=== PATIENT | female | born 1970 | race Hispanic/Latino ===

== ENCOUNTER 2017-04-09 07:06 | Emergency (ER) | payer BC, OTHER ==
[2017-04-09 07:36] LABS: #Lymphocytes 1.1 thou/uL (1.20-3.40); #Monocytes 0.3 thou/uL (0.11-0.59); #Neutrophils 5.6 thou/uL (1.40-6.50); %Basophils 0.2 % (0.0-1.0); %Eosinophils 0.2 % (0.0-10.0); %Lymphocytes 15.2 % (21.0-51.0); %Monocytes 4.9 % (0.0-10.0); Hematocrit 34.5 % (36.0-47.0); Mean Platelet Volume 8.4 fL (7.4-10.4)
--- NOTE | 2017-04-09 07:43 | RAD ---
CHEST 1 VIEW: HISTORY: Nausea and vomiting. Dyspnea. FINDINGS: Cardiac silhouette is magnified and upper limits of normal in size. Pulmonary vasculature is unrema rkable. Mediastinum is midline. There is no confluent airspace consolidation or evidence of pneumo thorax. IMPRESSION: No active cardiopulmonary abnormalities are demonstrated. POS: [facility]
[2017-04-09] MEDS ORDERED: Promethazine HCl 25 MG/ML VIAL ONE (07:45)
[2017-04-09 08:11] LABS: ALT (SGPT) 9 U/L (8-55); AST (SGOT) 12 U/L (5-34); Alkaline Phosphatase 108 U/L (40-150); Anion Gap 10 mmol/L (10-20); BUN (Urea Nitrogen) 10 mg/dL (7.0-18.7); Bilirubin, Total 0.4 mg/dL (0.2-1.2); CK (CPK) 137 U/L (29-168); Calc. Creatinine Clearance 0 mL/min (70-130); Calcium 8.9 mg/dL (7.8-10.44); Carbon Dioxide 27 mmol/L (22-29); Chloride 103 mmol/L (98-107); Estimated GFR-MDRD 86; Globulin 3.6 g/dL (2.4-3.5); Lipase 7 U/L (8-78); Protein, Total 7.5 g/dL (6.0-8.3)
[2017-04-09 08:18] LABS: Troponin I Less than 0.010 ng/mL (< 0.028)
--- NOTE | 2017-04-12 06:40 | EKG ---
Test Reason : Blood Pressure : / mmHG Vent. Rate : 059 BPM Atrial Rate : 059 BPM P-R Int : 158 ms QRS Dur : 070 ms QT Int : 406 ms P-R-T Axes : 072 -12 019 degrees QTc Int : 401 ms Sinus bradycardia Otherwise normal ECG Confirmed by BATOOL FITZGERALD, LJ ([id number]), assignment desk editor MAHESH SY ([id number]) on 04/12/2017 6:40:00 AM Referred By: Confirmed By:LJ RENAE MD
== END 2017-04-09 09:08 | disposition home or self-care (01) ==
LOC: ERS 07:06
DX: R11.2 Nausea with vomiting, unspecified (principal); R19.7 Diarrhea, unspecified; R10.84 Generalized abdominal pain
CPT/HCPCS: 36415; 71010; 80053; 82553; 83690; 84484; 85025; 93005; 96361; 96374; J2550

== ENCOUNTER 2017-04-10 19:02 | Emergency (ER) | payer OTHER ==
[2017-04-10 20:19] LABS: #Basophils 0.1 thou/uL (0.0-0.2); #Lymphocytes 1.7 thou/uL (1.20-3.40); #Monocytes 0.6 thou/uL (0.11-0.59); #Neutrophils 6.6 thou/uL (1.40-6.50); %Basophils 0.8 % (0.0-1.0); %Eosinophils 0.4 % (0.0-10.0); %Lymphocytes 18.6 % (21.0-51.0); %Monocytes 6.1 % (0.0-10.0); Hematocrit 33.7 % (36.0-47.0); Mean Platelet Volume 8.2 fL (7.4-10.4); Red Blood Cell (RBC) Count 4.25 mill/uL (4.20-5.40); White Blood Cell (WBC) Count 8.9 thou/uL (4.8-10.8)
[2017-04-10 20:46] LABS: ALT (SGPT) 12 U/L (8-55); AST (SGOT) 15 U/L (5-34); Alkaline Phosphatase 102 U/L (40-150); Anion Gap 12 mmol/L (10-20); BUN (Urea Nitrogen) 11 mg/dL (7.0-18.7); Bilirubin, Total 0.3 mg/dL (0.2-1.2); Calc. Creatinine Clearance 0 mL/min (70-130); Carbon Dioxide 27 mmol/L (22-29); Chloride 102 mmol/L (98-107); Estimated GFR-MDRD 87; Globulin 3.6 g/dL (2.4-3.5); Lipase 7 U/L (8-78); Protein, Total 7.5 g/dL (6.0-8.3)
[2017-04-10] MEDS ORDERED: Mag-Al 1200 mg/1200 mg/30 ML UDCUP ONE (22:34)
[2017-04-10] MEDS ORDERED: Ondansetron HCl/PF 4 MG/2 ML Vial ONE (22:34)
[2017-04-10] MEDS ORDERED: Lidocaine Viscous Sol 2% 15 ml UD Cup ONE (22:34)
[2017-04-10 23:10] LABS: Bilirubin Small (Negative); Blood, Urine Large (Negative); Glucose, Urine (Dipstick) Negative (Negative); Ketone, Urine 80 mg/dL (Negative); Nitrite Positive (Negative); Protein, Urine (Dipstick) 30 mg/dL (Neg-Trace)
[2017-04-10 23:12] LABS: Bacteria/HPF None Seen HPF (None Seen); Hyaline Casts/LPF 0-3 HYALINE CAST LPF (0-3 Hyaline); RBC/HPF GREATER THAN 50-TNTC HPF (0-3); Squamous Epithelial 0-3 HPF (0-3); WBC/HPF 0-3 HPF (0-3)
--- NOTE | 2017-04-10 23:41 | RAD ---
CHEST ONE VIEW ABDOMEN TWO VIEWS: History: Emesis, not passing gas. FINDINGS/IMPRESSION: The heart size is normal, the lungs are clear. There are post op changes of cholecystectomy. No free air or differential air fluid levels are seen. There is air and loops of small and large bowel. No suspicious calcifications are seen. POS: [facility]
[2017-04-11] MEDS ORDERED: chlorproMAZINE HCl 25 MG TAB PO SCH (00:15)
[2017-04-11] MEDS ORDERED: Simethicone Chewable 80 MG TAB PO SCH (00:15)
== END 2017-04-11 02:39 | disposition home or self-care (01) ==
LOC: ERS 19:02
DX: R11.2 Nausea with vomiting, unspecified (principal); R06.6 Hiccough; R10.812 Left upper quadrant abdominal tenderness; R10.811 Right upper quadrant abdominal tenderness; Z79.899 Other long term (current) drug therapy
CPT/HCPCS: 36415; 74022; 80053; 81003; 81015; 83690; 85025; 96361; 96374; J2405; Q0161

== ENCOUNTER 2017-04-11 17:49 | Emergency (ER) | payer OTHER ==
[2017-04-11 19:22] LABS: Anion Gap 10 mmol/L (10-20); BUN (Urea Nitrogen) 11 mg/dL (7.0-18.7); Calc. Creatinine Clearance 0 mL/min (70-130); Calcium 8.7 mg/dL (7.8-10.44); Carbon Dioxide 28 mmol/L (22-29); Chloride 103 mmol/L (98-107); Estimated GFR-MDRD 87
[2017-04-11] MEDS ORDERED: Ondansetron HCl/PF 4 MG/2 ML Vial ONE ×2 (20:38→21:36)
[2017-04-11] MEDS ORDERED: Famotidine/PF 20 mg/2ml Vial ONE (20:38)
[2017-04-11] MEDS ORDERED: Lidocaine Viscous Sol 2% 15 ml UD Cup ONE (20:38)
[2017-04-11] MEDS ORDERED: Mag-Al 1200 mg/1200 mg/30 ML UDCUP ONE (20:38)
[2017-04-11 20:54] LABS: #Lymphocytes 1.3 thou/uL (1.20-3.40); #Monocytes 0.4 thou/uL (0.11-0.59); #Neutrophils 6.3 thou/uL (1.40-6.50); %Basophils 0.1 % (0.0-1.0); %Eosinophils 0.2 % (0.0-10.0); %Lymphocytes 15.8 % (21.0-51.0); %Monocytes 5.3 % (0.0-10.0); Hematocrit 35.2 % (36.0-47.0); Mean Platelet Volume 8.8 fL (7.4-10.4); Red Blood Cell (RBC) Count 4.41 mill/uL (4.20-5.40)
[2017-04-11 21:47] LABS: Bilirubin Small (Negative); Blood, Urine Negative (Negative); Glucose, Urine (Dipstick) Negative (Negative); Ketone, Urine > or equal to 80 mg/dL (Negative); Nitrite Positive (Negative); Protein, Urine (Dipstick) Trace mg/dL (Neg-Trace); Urobilinogen 0.2 mg/dL (0.2-1.0)
[2017-04-11 21:48] LABS: Bacteria/HPF None Seen HPF (None Seen); Hyaline Casts/LPF 4-6 HYALINE CAST LPF (0-3 Hyaline); RBC/HPF 0-3 HPF (0-3); Squamous Epithelial 0-3 HPF (0-3); WBC/HPF 0-3 HPF (0-3)
[2017-04-11] MEDS ORDERED: Potassium Bicarbonate/Cit Ac 25 MEQ TAB ONE (22:13)
== END 2017-04-11 22:38 | disposition home or self-care (01) ==
LOC: ERS 17:49
DX: R11.2 Nausea with vomiting, unspecified (principal); R19.7 Diarrhea, unspecified; Z79.899 Other long term (current) drug therapy
CPT/HCPCS: 36415; 51701; 74022; 80048; 80053; 81003; 81015; 81025; 82150; 82274; 83690; 85025; 87480; 87491; 87510; 87591; 87660; 96361; 96374; 96375; 96376; A4353; J2405; Q0161; S0028

== ENCOUNTER 2022-09-29 20:19 | Emergency (ER) | payer BC, OTHER, SELFPAY ==
[2022-09-29] MEDS ORDERED: Ketorolac Tromethamine 30 MG/ML VIAL ONE (21:29)
== END 2022-09-29 22:59 | disposition home or self-care (01) ==
LOC: ERS 20:19
DX: S20.219A Contusion of unspecified front wall of thorax, initial encounter (principal); V43.92XA Unspecified car occupant injured in collision with other type car in traffic accident, initial encounter
CPT/HCPCS: 70450; 71045; 72125; 96372; J1885